=== PATIENT | male | born 2000 | race Asian ===

== ENCOUNTER 2021-02-16 20:41 | Emergency (ER) | payer OTHER ==
[~2021-02-16] VITALS: Ht 170.2 cm; Wt 66.8 kg
[2021-02-16] MEDS ORDERED: IBUPROFEN 600 MG TABLET PO ONE (21:15)
[2021-02-16 21:20] VITALS: BP 146/98
[2021-02-16 21:21] LABS: BASOPHILS % (AUTO) 0.5 % (0.0-2.0); EOSINOPHILS % (AUTO) 2.3 % (1.0-6.0); HEMATOCRIT 40.7 % (41-53); HEMOGLOBIN 13.4 g/dL (13.5-17.5); LYMPHOCYTES # (AUTO) 2.8 K/uL (1.0-4.8); LYMPHOCYTES % (AUTO) 24.4 % (22.0-44.0); MEAN CORPUSCULAR HEMOGLOBIN 30.6 pg (26.0-34.0); MEAN CORPUSCULAR VOLUME 93 fL (80-100); MONOCYTES # (AUTO) 0.9 K/uL (0.1-1.0); MONOCYTES % (AUTO) 8.1 % (2.0-9.0); NEUTROPHILS # (AUTO) 7.4 K/uL (1.8-7.7); NEUTROPHILS % (AUTO) 64.7 % (40.0-70.0); PLATELET COUNT (AUTO) 323 K/uL (150-450); RED BLOOD CELL COUNT(AUTO) 4.39 MIL/uL (4.50-5.90); RED CELL DISTRIBUTION WIDTH 14.5 % (11.5-14.5)
[2021-02-16 21:29] LABS: ANION GAP 12 mmol/L (8-16); CALCIUM, TOTAL 8.2 mg/dL (8.8-10.5); CARBON DIOXIDE 26 mmol/L (22-29); CHLORIDE 105 mmol/L (98-107); CREATININE 0.84 mg/dL (0.60-1.30); GLOMERULAR FILTR. RATE CALC > 60 mL/min (>60); GLUCOSE,RANDOM 118 mg/dL (70-110); POTASSIUM 3.5 mmol/L (3.5-5.1); SODIUM SERUM 143 mmol/L (136-145); UREA NITROGEN, BLOOD 12 mg/dL (7-18)
[2021-02-16 21:34] LABS: ALANINE AMINOTRANSFERASE 39 U/L (12-78); ALKALINE PHOSPHATASE 57 U/L (46-116); ASPARTATE AMINOTRANSFERASE 38 U/L (15-37); BILIRUBIN,TOTAL 0.5 mg/dL (0.1-1.0); TOTAL PROTEIN, SERUM 7.8 g/dL (6.4-8.2)
== END 2021-02-16 22:23 | disposition home or self-care (01) ==
LOC: EMS 20:42
DX: S40.012A Contusion of left shoulder, initial encounter (principal); F31.9 Bipolar disorder, unspecified; F17.200 Nicotine dependence, unspecified, uncomplicated; F12.90 Cannabis use, unspecified, uncomplicated; W19.XXXA Unspecified fall, initial encounter; Y93.89 Activity, other specified; Y92.89 Other specified places as the place of occurrence of the external cause; Y99.8 Other external cause status
CPT/HCPCS: 80053; 85025; 99285; G0480

== ENCOUNTER 2021-02-28 11:47 | Emergency (ER) | payer OTHER ==
[~2021-02-28] VITALS: Ht 157.5 cm; Wt 57.3 kg
[2021-02-28 12:36] VITALS: BP 132/90
[2021-02-28 13:23] LABS: COVID AG,FIA SOURCE NASOPHARYNGEAL
[2021-02-28 13:29] LABS: AMPHET/METH SCREEN,URINE NEGATIVE (NEGATIVE); BARBITURATE SCREEN, URINE NEGATIVE (NEGATIVE); BENZODIAZEPINES SCREEN,URINE NEGATIVE (NEGATIVE); CANNABINOID SCREEN,URINE POSITIVE (NEGATIVE); COCAINE SCREEN,URINE NEGATIVE (NEGATIVE); METHADONE SCREEN, URINE NEGATIVE (NEGATIVE); OPIATE SCREEN,URINE NEGATIVE (NEGATIVE)
[2021-02-28] MEDS ORDERED: IBUPROFEN 600 MG TABLET PO ONE (13:30)
[2021-02-28 13:33] LABS: PHENCYCLIDINE SCREEN,URINE NEGATIVE (NEGATIVE)
[2021-02-28 13:35] LABS: EOSINOPHILS % (AUTO) 2.9 % (1.0-6.0); HEMATOCRIT 44.1 % (41-53); HEMOGLOBIN 14.1 g/dL (13.5-17.5); LYMPHOCYTES # (AUTO) 3.1 K/uL (1.0-4.8); LYMPHOCYTES % (AUTO) 34.3 % (22.0-44.0); MEAN CORPUSCULAR HGB CONC 31.9 G/dL (31.0-37.0); MEAN CORPUSCULAR VOLUME 94 fL (80-100); MONOCYTES # (AUTO) 0.6 K/uL (0.1-1.0); MONOCYTES % (AUTO) 7.1 % (2.0-9.0); NEUTROPHILS # (AUTO) 4.9 K/uL (1.8-7.7); NEUTROPHILS % (AUTO) 54.7 % (40.0-70.0); PLATELET COUNT (AUTO) 283 K/uL (150-450); RED BLOOD CELL COUNT(AUTO) 4.69 MIL/uL (4.50-5.90); RED CELL DISTRIBUTION WIDTH 15.1 % (11.5-14.5)
[2021-02-28 13:49] LABS: ANION GAP 9 mmol/L (8-16); CALCIUM, TOTAL 9.2 mg/dL (8.8-10.5); CARBON DIOXIDE 29 mmol/L (22-29); CHLORIDE 106 mmol/L (98-107); CREATININE 0.84 mg/dL (0.60-1.30); GLOMERULAR FILTR. RATE CALC > 60 mL/min (>60); GLUCOSE,RANDOM 78 mg/dL (70-110); POTASSIUM 3.6 mmol/L (3.5-5.1); SODIUM SERUM 144 mmol/L (136-145); UREA NITROGEN, BLOOD 6 mg/dL (7-18)
[2021-02-28 13:51] LABS: ALANINE AMINOTRANSFERASE 33 U/L (12-78); ALBUMIN 4.2 g/dL (3.4-5.0); ALKALINE PHOSPHATASE 51 U/L (46-116); ASPARTATE AMINOTRANSFERASE 23 U/L (15-37); BILIRUBIN,TOTAL 0.3 mg/dL (0.1-1.0); TOTAL PROTEIN, SERUM 7.9 g/dL (6.4-8.2)
== END 2021-02-28 14:22 | disposition home or self-care (01) ==
LOC: EMS 11:47
DX: F31.9 Bipolar disorder, unspecified (principal); R45.851 Suicidal ideations; F17.200 Nicotine dependence, unspecified, uncomplicated; F12.90 Cannabis use, unspecified, uncomplicated; Z20.822 Contact with and (suspected) exposure to COVID-19; Z88.6 Allergy status to analgesic agent
CPT/HCPCS: 36415; 80053; 80307; 85025; 87426; 99285; G0480

== ENCOUNTER 2023-09-16 09:42 | Inpatient (IN) | payer MEDICAID, OTHER ==
[~2023-09-16] VITALS: Ht 152.4 cm; Wt 59.0 kg
[2023-09-16 10:12] LABS: PH,URINE DRUG SCREEN 6.5 (5.0-8.0)
[2023-09-16] MEDS ORDERED: PROP40TA7 PO (10:12)
[2023-09-16] MEDS ORDERED: DIAZ-328 PO (10:12)
[2023-09-16] MEDS ORDERED: CETI-450 PO (10:12)
[2023-09-16] MEDS ORDERED: QUET400T54 PO (10:12)
[2023-09-16] MEDS ORDERED: QUET200T PO (10:12)
[2023-09-16] MEDS ORDERED: NITR-75 PO (10:12)
[2023-09-16] MEDS ORDERED: NAPR-1025 PO (10:12)
[2023-09-16] MEDS ORDERED: ESCI-8 PO (10:12)
[2023-09-16 10:19] LABS: ALCOHOL, URINE DRUG SCREEN NEGATIVE (NEGATIVE); AMPHET/METH SCREEN,URINE NEGATIVE (NEGATIVE); BARBITURATE SCREEN, URINE NEGATIVE (NEGATIVE); BENZODIAZEPINES SCREEN,URINE POSITIVE (NEGATIVE); CANNABINOID SCREEN,URINE POSITIVE (NEGATIVE); COCAINE SCREEN,URINE NEGATIVE (NEGATIVE); METHADONE SCREEN, URINE NEGATIVE (NEGATIVE); OPIATE SCREEN,URINE NEGATIVE (NEGATIVE); PHENCYCLIDINE SCREEN,URINE NEGATIVE (NEGATIVE)
[2023-09-16 10:23] LABS: BASOPHILS % (AUTO) 0.7 % (0.0-2.0); EOSINOPHILS % (AUTO) 5.9 % (1.0-6.0); HEMATOCRIT 44.9 % (41-53); HEMOGLOBIN 15.1 g/dL (13.5-17.5); LYMPHOCYTES % (AUTO) 20.3 % (22.0-44.0); MEAN CORPUSCULAR HEMOGLOBIN 31.2 pg (26.0-34.0); MEAN CORPUSCULAR HGB CONC 33.6 G/dL (31.0-37.0); MEAN CORPUSCULAR VOLUME 93 fL (80-100); MONOCYTES # (AUTO) 0.7 K/uL (0.1-1.0); MONOCYTES % (AUTO) 7.2 % (2.0-9.0); NEUTROPHILS # (AUTO) 6.5 K/uL (1.8-7.7); NEUTROPHILS % (AUTO) 65.9 % (40.0-70.0); PLATELET COUNT (AUTO) 292 K/uL (150-450); RED BLOOD CELL COUNT(AUTO) 4.83 MIL/uL (4.50-5.90); WHITE BLOOD COUNT (AUTO) 9.9 K/uL (4.5-11.0)
[2023-09-16 10:33] LABS: ANION GAP 10 mmol/L (8-16); CALCIUM, TOTAL 9.2 mg/dL (8.8-10.5); CARBON DIOXIDE 26 mmol/L (22-29); CHLORIDE 104 mmol/L (98-107); CREATININE 0.97 mg/dL (0.60-1.30); GLOMERULAR FILTR. RATE CALC > 60 mL/min (>60); GLUCOSE,RANDOM 94 mg/dL (70-110); POTASSIUM 3.9 mmol/L (3.5-5.1); SODIUM SERUM 140 mmol/L (136-145); UREA NITROGEN, BLOOD 11 mg/dL (7-18)
[2023-09-16 10:37] LABS: ALCOHOL, BLOOD (SERUM) < 3 mg/dL (0-10)
[2023-09-16 10:39] LABS: ALANINE AMINOTRANSFERASE 31 U/L (12-78); ALBUMIN 4.4 g/dL (3.4-5.0); ALKALINE PHOSPHATASE 54 U/L (46-116); ASPARTATE AMINOTRANSFERASE 27 U/L (15-37); BILIRUBIN,TOTAL 0.5 mg/dL (0.1-1.0); TOTAL PROTEIN, SERUM 8.2 g/dL (6.4-8.2)
[2023-09-16 11:08] LABS: COVID AG,FIA SOURCE NASAL SWAB
[2023-09-16] MEDS: ESCITALOPRAM OXALATE 10 MG TABLET PO ONE (11:30)
[2023-09-16 11:46] LABS: SARS-COV2 (COVID) ANTIGEN,FIA Negative (Negative)
[2023-09-16] MEDS: LORazepam 2 MG TABLET PO PRN (12:47)
[2023-09-16] MEDS: HALOPERIDOL 5 MG TABLET PO PRN (12:47)
[2023-09-16 16:15] VITALS: BP 127/97; PULSE 83; RESP 17; TEMP 97.8; O2SAT 99
[2023-09-16 16:18] VITALS: BP 127/97; PULSE 83; RESP 17; TEMP 97.8; O2SAT 99
[2023-09-16] MEDS: PROPRANOLOL HCL 20 MG TABLET PO SCH (21:38)
[2023-09-16 21:45] VITALS: BP 134/73; PULSE 95; RESP 16; TEMP 97.1; O2SAT 99
[2023-09-16] MEDS: ZOLPIDEM TARTRATE 10 MG TABLET PO PRN (23:29)
[2023-09-16 23:45] VITALS: BP_SYST 127; BP_DIAS 64; BP_DIAS 94; PULSE 67; RESP 17; TEMP 97.3; TEMP 98.4; O2SAT 98
[2023-09-17] VITALS: BP 129/78; PULSE 67; RESP 17; TEMP 97.3; O2SAT 99
[2023-09-17 00:30] VITALS: BP 109/83; PULSE 69; RESP 18; TEMP 97.9; O2SAT 97
[2023-09-17 01:00] VITALS: BP 120/76; PULSE 68; RESP 17; TEMP 97.7; O2SAT 99
[2023-09-17 02:00] VITALS: BP 118/58; PULSE 67; RESP 17; TEMP 97.8; O2SAT 98
[2023-09-17] MEDS ORDERED: MAGNESIUM HYDROXIDE SUSPENSION 30 ML UDCUP PO PRN (07:00)
[2023-09-17] MEDS ORDERED: MAG HYDROX/ALUMINUM HYD/SIMETH ES 30 ML SUSPENSION UDCUP PO PRN (07:00)
[2023-09-17] MEDS ORDERED: GuaiFENesin/D-METHORPHAN [SUGAR-FREE] 200-20MG/10 ML SYRUP UDCUP PO PRN (07:00)
[2023-09-17] MEDS ORDERED: PETROLATUM,WHITE 28 GM JELLY TP PRN (07:00)
[2023-09-17] MEDS ORDERED: ONDANSETRON HCL 4 MG TABLET PO PRN (07:00)
[2023-09-17] MEDS ORDERED: DOCUSATE SODIUM 100 MG CAPSULE PO PRN (07:00)
[2023-09-17] MEDS ORDERED: LOPERAMIDE HCL 2 MG CAPSULE PO PRN (07:00)
[2023-09-17] MEDS ORDERED: NICOTINE 14 MG/24 HOUR PATCH TD PRN (07:00)
[2023-09-17] MEDS ORDERED: ALBUTEROL SULFATE HFA 90 MCG/PUFF 8 GM INHALER IH PRN (07:00)
[2023-09-17 08:00] VITALS: BP 132/82; PULSE 65; RESP 18; TEMP 98.6; O2SAT 100
[2023-09-17] MEDS: CETIRIZINE HCL 10 MG TABLET PO SCH (08:53)
[2023-09-17] MEDS: ACETAMINOPHEN 325 MG TABLET PO PRN (09:23)
[2023-09-17] MEDS ORDERED: ChlorproMAZINE HCL 50 MG/2 ML AMP ONE (13:03)
[2023-09-17] MEDS ORDERED: LORazepam 2 MG/ML VIAL ONE (13:04)
[2023-09-17] MEDS: LORazepam 2 MG/ML VIAL IM ONE (13:30)
[2023-09-17] MEDS: ChlorproMAZINE HCL 50 MG/2 ML AMP IM ONE (13:30)
[2023-09-17 20:09] VITALS: BP 137/80; PULSE 77; RESP 18; TEMP 98.4
[2023-09-18 08:02] VITALS: BP 132/76; PULSE 82; RESP 17; TEMP 98
[2023-09-18] MEDS: ESCITALOPRAM OXALATE 10 MG TABLET PO SCH (09:01)
[2023-09-18 10:47] LABS: APPEARANCE,URINE TURBID (CLEAR); BILIRUBIN,URINE NEGATIVE (NEGATIVE); COLOR,URINE LIGHT ORANGE (YELLOW); GLUCOSE, URINE (UA) NEGATIVE (NEGATIVE); KETONES,URINE TRACE mg/dL (NEGATIVE); LEUKOCYTE ESTERASE ,URINE NEGATIVE (NEGATIVE); NITRATE,URINE NEGATIVE (NEGATIVE); OCCULT BLOOD,URINE NEGATIVE (NEGATIVE); PROTEIN,URINE 30-70 mg/dL (NEGATIVE); SPECIFIC GRAVITIY, URINE 1.029 (1.003-1.030); UROBILINOGEN,URINE <=1.0 mg/dL (<=1.0)
[2023-09-18 11:11] LABS: ALCOHOL, URINE DRUG SCREEN NEGATIVE (NEGATIVE); AMPHET/METH SCREEN,URINE NEGATIVE (NEGATIVE); BARBITURATE SCREEN, URINE NEGATIVE (NEGATIVE); BENZODIAZEPINES SCREEN,URINE POSITIVE (NEGATIVE); CANNABINOID SCREEN,URINE POSITIVE (NEGATIVE); COCAINE SCREEN,URINE NEGATIVE (NEGATIVE); METHADONE SCREEN, URINE NEGATIVE (NEGATIVE); OPIATE SCREEN,URINE NEGATIVE (NEGATIVE); PHENCYCLIDINE SCREEN,URINE NEGATIVE (NEGATIVE)
[2023-09-18 12:17] LABS: HEMOGLOBIN A1C 5.7 % (3.8-5.6)
[2023-09-18 12:41] LABS: CHOL/HDL RATIO 5.7 (4.2-7.3); THYROID STIMULATING HORMONE 0.71 uIU/mL (0.36-3.74)
[2023-09-18] MEDS: ACETAMINOPHEN 325 MG TABLET PO PRN (18:20)
[2023-09-18] MEDS: QUEtiapine FUMARATE 300 MG TABLET PO SCH (20:05)
[2023-09-18 20:16] VITALS: BP 136/99; PULSE 77; RESP 18; TEMP 98; O2SAT 96
[2023-09-19 04:44] VITALS: BP 111/77; PULSE 88; RESP 18; TEMP 98; O2SAT 96
[2023-09-19 08:19] VITALS: BP 132/90; PULSE 100; RESP 18; TEMP 98; O2SAT 97
[2023-09-19] MEDS: QUEtiapine FUMARATE 100 MG TABLET PO PRN (09:50)
[2023-09-19] MEDS: IBUPROFEN 400 MG TABLET PO PRN (16:57)
[2023-09-19 20:40] VITALS: BP 132/83; PULSE 69; RESP 18; TEMP 98; O2SAT 96
[2023-09-20 02:34] VITALS: BP 142/94; PULSE 80; RESP 18; TEMP 97.7; O2SAT 100
[2023-09-20 08:37] VITALS: BP 133/85; PULSE 83; RESP 18; TEMP 97.9; O2SAT 95
[2023-09-20] MEDS ORDERED: ESCI-8 PO (12:40)
[2023-09-20] MEDS ORDERED: QUET300T19 PO (12:40)
[2023-09-20] MEDS ORDERED: PROP20TA96 PO (12:40)
[2023-09-20] MEDS ORDERED: CETI-450 PO (12:40)
== END 2023-09-20 17:45 | disposition home or self-care (01) | DRG 750 ==
LOC: EMS 09:45 → B3A 11:59
PROVIDERS: ADMIT Psychiatry & Neurology Psychiatry; ATTEND Psychiatry & Neurology Psychiatry
PROC: GZHZZZZ Group Psychotherapy (ICD-10-PCS; principal; 2023-09-17)
PROC: GZ51ZZZ Individual Psychotherapy, Behavioral (ICD-10-PCS; 2023-09-17)
DX: F25.0 Schizoaffective disorder, bipolar type (principal); F12.10 Cannabis abuse, uncomplicated; I10 Essential (primary) hypertension; Z20.822 Contact with and (suspected) exposure to COVID-19; S10.90XA Unspecified superficial injury of unspecified part of neck, initial encounter; Y93.89 Activity, other specified; X78.9XXA Intentional self-harm by unspecified sharp object, initial encounter; Y92.89 Other specified places as the place of occurrence of the external cause; Y99.8 Other external cause status; Z79.899 Other long term (current) drug therapy
CPT/HCPCS: 80053; 80061; 80307; 81003; 83036; 84443; 85025; 99285; G0480; J2060; J3230

== ENCOUNTER 2023-09-17 02:27 | Emergency (ER) | payer MEDICAID, OTHER ==
[~2023-09-17] VITALS: Ht 152.4 cm; Wt 59.1 kg
[~2023-09-17 02:27] MED LIST: CETI-450 PO; DIAZ-328 PO; ESCI-8 PO; NAPR-1025 PO; NITR-75 PO; PROP40TA7 PO; QUET200T PO; QUET400T54 PO
[2023-09-17 03:08] VITALS: TEMP 98.9
[2023-09-17] MEDS: KETOROLAC TROMETHAMINE 60 MG/2 ML VIAL IM ONE (03:48)
[2023-09-17] MEDS: METHOCARBAMOL 500 MG TABLET PO ONE (03:48)
[2023-09-17] MEDS: LIDOCAINE 5% TRANSDERMAL PATCH TD ONE (03:48)
[2023-09-17 05:15] VITALS: BP 127/70; PULSE 72; RESP 16
== END 2023-09-17 07:17 | disposition home or self-care (01) ==
LOC: EMS 02:27
DX: M54.31 Sciatica, right side (principal); F31.9 Bipolar disorder, unspecified; F12.90 Cannabis use, unspecified, uncomplicated; F10.90 Alcohol use, unspecified, uncomplicated; Z88.8 Allergy status to other drugs, medicaments and biological substances; Y90.9 Presence of alcohol in blood, level not specified
CPT/HCPCS: 99283; 96372; J1885

== ENCOUNTER 2023-09-24 16:59 | Inpatient (IN) | payer MEDICAID, OTHER ==
[~2023-09-24] VITALS: Ht 152.4 cm; Wt 60.8 kg
[~2023-09-24 16:59] MED LIST changes: -DIAZ-328 PO; -NAPR-1025 PO; -NITR-75 PO; +PROP20TA96 PO; -PROP40TA7 PO; -QUET200T PO; +QUET300T19 PO; -QUET400T54 PO
[2023-09-24] MEDS: LORazepam 2 MG/ML VIAL IM ONE (19:46)
[2023-09-24] MEDS: ZIPRASIDONE MESYLATE 20 MG/VIAL IM ONE (19:46)
[2023-09-24 22:13] LABS: COVID AG,FIA SOURCE NASAL SWAB
[2023-09-24 22:21] LABS: SARS-COV2 (COVID) ANTIGEN,FIA Negative (Negative)
[2023-09-24 23:08] LABS: BASOPHILS % (AUTO) 1.1 % (0.0-2.0); EOSINOPHILS % (AUTO) 6.8 % (1.0-6.0); HEMATOCRIT 40.3 % (41-53); HEMOGLOBIN 13.4 g/dL (13.5-17.5); LYMPHOCYTES # (AUTO) 3.3 K/uL (1.0-4.8); LYMPHOCYTES % (AUTO) 34.5 % (22.0-44.0); MEAN CORPUSCULAR HEMOGLOBIN 31.3 pg (26.0-34.0); MEAN CORPUSCULAR HGB CONC 33.2 G/dL (31.0-37.0); MEAN CORPUSCULAR VOLUME 94 fL (80-100); MONOCYTES # (AUTO) 0.8 K/uL (0.1-1.0); MONOCYTES % (AUTO) 7.9 % (2.0-9.0); NEUTROPHILS # (AUTO) 4.8 K/uL (1.8-7.7); NEUTROPHILS % (AUTO) 49.7 % (40.0-70.0); PLATELET COUNT (AUTO) 319 K/uL (150-450); RED BLOOD CELL COUNT(AUTO) 4.28 MIL/uL (4.50-5.90); RED CELL DISTRIBUTION WIDTH 15.3 % (11.5-14.5); WHITE BLOOD COUNT (AUTO) 9.7 K/uL (4.5-11.0)
[2023-09-24 23:15] LABS: CARBON DIOXIDE 26 mmol/L (22-29); CHLORIDE 103 mmol/L (98-107); POTASSIUM 3.5 mmol/L (3.5-5.1); SODIUM SERUM 142 mmol/L (136-145)
[2023-09-24 23:16] LABS: ANION GAP 13 mmol/L (8-16); CALCIUM, TOTAL 9.1 mg/dL (8.8-10.5); CREATININE 0.83 mg/dL (0.60-1.30); GLOMERULAR FILTR. RATE CALC > 60 mL/min (>60); GLUCOSE,RANDOM 82 mg/dL (70-110); UREA NITROGEN, BLOOD 13 mg/dL (7-18)
[2023-09-24 23:22] LABS: ALANINE AMINOTRANSFERASE 45 U/L (12-78); ALBUMIN 3.9 g/dL (3.4-5.0); ALKALINE PHOSPHATASE 57 U/L (46-116); ASPARTATE AMINOTRANSFERASE 60 U/L (15-37); BILIRUBIN,TOTAL 0.4 mg/dL (0.1-1.0); TOTAL PROTEIN, SERUM 7.4 g/dL (6.4-8.2)
[2023-09-24 23:27] LABS: ALCOHOL, BLOOD (SERUM) < 3 mg/dL (0-10)
[2023-09-25] MEDS: LORazepam 2 MG TABLET PO PRN (04:04)
[2023-09-25] MEDS: QUEtiapine FUMARATE 100 MG TABLET PO PRN (04:04)
[2023-09-25 04:53] VITALS: BP 124/81; PULSE 90; RESP 18; TEMP 97.7; O2SAT 98
[2023-09-25] MEDS: BACITRACIN 28 GM OINTMENT TP SCH (08:31)
[2023-09-25] MEDS: NICOTINE 14 MG/24 HOUR PATCH TD SCH (08:34)
[2023-09-25 08:36] LABS: HEMOGLOBIN A1C 5.6 % (3.8-5.6)
[2023-09-25 09:01] LABS: CHOL/HDL RATIO 3.8 (4.2-7.3); FREE T4 (FREE THYROXINE) 0.79 ng/dL (0.76-1.46); THYROID STIMULATING HORMONE 1.69 uIU/mL (0.36-3.74)
[2023-09-25 09:19] VITALS: BP 118/84; PULSE 87; RESP 16; TEMP 98; O2SAT 100
[2023-09-25] MEDS: ESCITALOPRAM OXALATE 10 MG TABLET PO SCH (10:46)
[2023-09-25] MEDS ORDERED: LORazepam 2 MG/ML VIAL ONE (11:17)
[2023-09-25] MEDS ORDERED: ChlorproMAZINE HCL 50 MG/2 ML AMP ONE (11:18)
[2023-09-25] MEDS: ChlorproMAZINE HCL 50 MG/2 ML AMP IM ONE (11:57)
[2023-09-25] MEDS: LORazepam 2 MG/ML VIAL IM ONE (11:57)
[2023-09-25] MEDS ORDERED: MAGNESIUM HYDROXIDE SUSPENSION 30 ML UDCUP PO PRN (15:30)
[2023-09-25] MEDS ORDERED: NICOTINE 14 MG/24 HOUR PATCH TD PRN (15:30)
[2023-09-25] MEDS ORDERED: MAG HYDROX/ALUMINUM HYD/SIMETH ES 30 ML SUSPENSION UDCUP PO PRN (15:30)
[2023-09-25] MEDS ORDERED: ALBUTEROL SULFATE HFA 90 MCG/PUFF 8 GM INHALER IH PRN (15:30)
[2023-09-25] MEDS ORDERED: PETROLATUM,WHITE 28 GM JELLY TP PRN (15:30)
[2023-09-25] MEDS ORDERED: GuaiFENesin/D-METHORPHAN [SUGAR-FREE] 200-20MG/10 ML SYRUP UDCUP PO PRN (15:30)
[2023-09-25] MEDS ORDERED: LOPERAMIDE HCL 2 MG CAPSULE PO PRN (15:30)
[2023-09-25 20:16] VITALS: BP 158/95; PULSE 87; TEMP 96.8
[2023-09-25] MEDS: PROPRANOLOL HCL 20 MG TABLET PO SCH (20:26)
[2023-09-25] MEDS: QUEtiapine FUMARATE 300 MG TABLET PO SCH (20:26)
[2023-09-25 21:15] VITALS: BP 131/87; PULSE 89; RESP 20; TEMP 97.7; O2SAT 100
[2023-09-25] MEDS: PROPRANOLOL HCL 10 MG TABLET PO SCH (21:24)
[2023-09-25] MEDS: ONDANSETRON HCL 4 MG TABLET PO PRN (22:13)
[2023-09-25] MEDS: IBUPROFEN 400 MG TABLET PO PRN (22:40)
[2023-09-26] MEDS: ZOLPIDEM TARTRATE 10 MG TABLET PO PRN (01:35)
[2023-09-26 07:07] VITALS: RESP 18
[2023-09-26] MEDS: CETIRIZINE HCL 10 MG TABLET PO SCH (08:18)
[2023-09-26] MEDS: DOCUSATE SODIUM 100 MG CAPSULE PO PRN (08:18)
[2023-09-26 08:29] VITALS: BP 130/70; PULSE 90; RESP 18; TEMP 98; O2SAT 100
[2023-09-26 08:29] LABS: HEMOGLOBIN A1C 5.6 % (3.8-5.6)
[2023-09-26 08:37] LABS: CHOL/HDL RATIO 3.5 (4.2-7.3); FREE T4 (FREE THYROXINE) 0.83 ng/dL (0.76-1.46); THYROID STIMULATING HORMONE 1.53 uIU/mL (0.36-3.74)
[2023-09-26] MEDS: QUEtiapine FUMARATE 25 MG TABLET PO ONE (10:47)
[2023-09-26 15:16] VITALS: BP 123/89; PULSE 98; RESP 19; TEMP 97.5; O2SAT 100
[2023-09-26] MEDS: PROPRANOLOL HCL 20 MG TABLET PO SCH (21:40)
[2023-09-26 22:20] VITALS: BP 125/55; PULSE 96; RESP 18; TEMP 98.4; O2SAT 98
[2023-09-27] VITALS (10 sets, daily range): BP systolic 111–157; BP diastolic 79–96; PULSE 60–100; RESP 16–20; TEMP 97.3–98.4; O2SAT 96–99
[2023-09-27] MEDS: QUEtiapine FUMARATE 100 MG TABLET PO PRN (11:18)
[2023-09-28 08:38] VITALS: BP 134/90; PULSE 97; RESP 17; TEMP 97.4; O2SAT 99
[2023-09-28 21:50] VITALS: BP 138/90; PULSE 89; RESP 16; TEMP 98; O2SAT 96
[2023-09-29 09:38] VITALS: BP 135/80; PULSE 85; RESP 18; TEMP 97.9; O2SAT 96
[2023-09-29] MEDS: ACETAMINOPHEN 325 MG TABLET PO PRN (20:07)
[2023-09-29 20:25] VITALS: BP 141/96; PULSE 70; TEMP 97.5; O2SAT 98
[2023-09-30 01:29] VITALS: BP 132/94; PULSE 72; RESP 18; TEMP 97.6; O2SAT 98
[2023-09-30 08:32] VITALS: BP 140/75; PULSE 91; RESP 18; TEMP 97.6; O2SAT 100
[2023-09-30 20:24] VITALS: BP 15/99; PULSE 88; TEMP 98; O2SAT 100
[2023-10-01 08:19] VITALS: BP 127/94; PULSE 85; RESP 18; TEMP 97.7; O2SAT 99
[2023-10-01 08:23] LABS: APPEARANCE,URINE CLEAR (CLEAR); BILIRUBIN,URINE NEGATIVE (NEGATIVE); COLOR,URINE COLORLESS (YELLOW); GLUCOSE, URINE (UA) NEGATIVE (NEGATIVE); KETONES,URINE NEGATIVE (NEGATIVE); LEUKOCYTE ESTERASE ,URINE NEGATIVE (NEGATIVE); NITRATE,URINE NEGATIVE (NEGATIVE); OCCULT BLOOD,URINE NEGATIVE (NEGATIVE); PH,URINE 7.5 (5.0-8.0); PH,URINE DRUG SCREEN 7.5 (5.0-8.0); PROTEIN,URINE NEGATIVE (NEGATIVE); SPECIFIC GRAVITIY, URINE 1.005 (1.003-1.030); UROBILINOGEN,URINE <=1.0 mg/dL (<=1.0)
[2023-10-01 08:33] LABS: AMPHET/METH SCREEN,URINE NEGATIVE (NEGATIVE); BARBITURATE SCREEN, URINE NEGATIVE (NEGATIVE); BENZODIAZEPINES SCREEN,URINE NEGATIVE (NEGATIVE); CANNABINOID SCREEN,URINE POSITIVE (NEGATIVE); COCAINE SCREEN,URINE NEGATIVE (NEGATIVE); METHADONE SCREEN, URINE NEGATIVE (NEGATIVE); OPIATE SCREEN,URINE NEGATIVE (NEGATIVE); PHENCYCLIDINE SCREEN,URINE NEGATIVE (NEGATIVE)
[2023-10-01 08:34] LABS: ALCOHOL, URINE DRUG SCREEN NEGATIVE (NEGATIVE)
[2023-10-01 08:54] VITALS: BP 132/85; PULSE 112; RESP 18; TEMP 98.4; O2SAT 97
== END 2023-10-01 18:45 | disposition left against medical advice (07) | DRG 750 ==
LOC: EMS 17:06 → B3A 09-25 01:01
PROVIDERS: ADMIT Psychiatry & Neurology Child & Adolescent Psychiatry; ATTEND Psychiatry & Neurology Psychiatry
DX: F25.0 Schizoaffective disorder, bipolar type (principal); R45.851 Suicidal ideations; F41.9 Anxiety disorder, unspecified; I10 Essential (primary) hypertension; F12.10 Cannabis abuse, uncomplicated; Z20.822 Contact with and (suspected) exposure to COVID-19; F90.9 Attention-deficit hyperactivity disorder, unspecified type; J30.9 Allergic rhinitis, unspecified; Z53.21 Procedure and treatment not carried out due to patient leaving prior to being seen by health care provider; D64.9 Anemia, unspecified; Z88.8 Allergy status to other drugs, medicaments and biological substances; Z79.899 Other long term (current) drug therapy
CPT/HCPCS: 80053; 80061; 80307; 81003; 83036; 84439; 84443; 85025; 87081; 99285; G0480; J2060; J3230; J3486; Q0162

== ENCOUNTER 2023-09-26 15:50 | Emergency (ER) | payer MEDICAID, OTHER ==
[~2023-09-26] VITALS: Ht 162.6 cm; Wt 59.0 kg
[2023-09-26 16:06] VITALS: BP 134/86; PULSE 78; RESP 18; TEMP 97.9
[2023-09-26] MEDS: ACETAMINOPHEN 500 MG TABLET PO ONE (18:20)
[2023-09-26] MEDS: KETOROLAC TROMETHAMINE 30 MG/ML VIAL IM ONE (18:26)
== END 2023-09-26 20:33 | disposition short-term general hospital (02) ==
LOC: EMS 15:54
DX: G43.909 Migraine, unspecified, not intractable, without status migrainosus (principal); F31.9 Bipolar disorder, unspecified; F10.90 Alcohol use, unspecified, uncomplicated; F12.90 Cannabis use, unspecified, uncomplicated; Z88.8 Allergy status to other drugs, medicaments and biological substances
CPT/HCPCS: 99285; 70450; 96372; J1885

== ENCOUNTER 2023-10-03 02:12 | Inpatient (IN) | payer MEDICAID, OTHER ==
[~2023-10-03] VITALS: Ht 152.4 cm; Wt 62.2 kg
[2023-10-03] MEDS: LORazepam 2 MG TABLET PO ONE (04:04)
[2023-10-03 04:51] LABS: BASOPHILS % (AUTO) 0.8 % (0.0-2.0); EOSINOPHILS % (AUTO) 3.8 % (1.0-6.0); HEMATOCRIT 42.7 % (41-53); HEMOGLOBIN 14.2 g/dL (13.5-17.5); LYMPHOCYTES # (AUTO) 2.9 K/uL (1.0-4.8); LYMPHOCYTES % (AUTO) 27.1 % (22.0-44.0); MEAN CORPUSCULAR HEMOGLOBIN 31.7 pg (26.0-34.0); MEAN CORPUSCULAR HGB CONC 33.3 G/dL (31.0-37.0); MEAN CORPUSCULAR VOLUME 95 fL (80-100); MONOCYTES % (AUTO) 9.1 % (2.0-9.0); NEUTROPHILS # (AUTO) 6.3 K/uL (1.8-7.7); NEUTROPHILS % (AUTO) 59.2 % (40.0-70.0); PLATELET COUNT (AUTO) 357 K/uL (150-450); RED BLOOD CELL COUNT(AUTO) 4.49 MIL/uL (4.50-5.90); RED CELL DISTRIBUTION WIDTH 15.4 % (11.5-14.5); WHITE BLOOD COUNT (AUTO) 10.7 K/uL (4.5-11.0)
[2023-10-03 04:53] LABS: ANION GAP 11 mmol/L (8-16); CALCIUM, TOTAL 9.2 mg/dL (8.8-10.5); CARBON DIOXIDE 29 mmol/L (22-29); CHLORIDE 99 mmol/L (98-107); CREATININE 0.97 mg/dL (0.60-1.30); GLOMERULAR FILTR. RATE CALC > 60 mL/min (>60); GLUCOSE,RANDOM 142 mg/dL (70-110); POTASSIUM 3.8 mmol/L (3.5-5.1); SODIUM SERUM 139 mmol/L (136-145); UREA NITROGEN, BLOOD 11 mg/dL (7-18)
[2023-10-03 05:01] LABS: ALANINE AMINOTRANSFERASE 33 U/L (12-78); ALBUMIN 4.2 g/dL (3.4-5.0); ALKALINE PHOSPHATASE 56 U/L (46-116); ASPARTATE AMINOTRANSFERASE 28 U/L (15-37); BILIRUBIN,TOTAL 0.3 mg/dL (0.1-1.0); TOTAL PROTEIN, SERUM 7.6 g/dL (6.4-8.2)
[2023-10-03 05:08] LABS: APPEARANCE,URINE CLEAR (CLEAR); BILIRUBIN,URINE NEGATIVE (NEGATIVE); COLOR,URINE LIGHT YELLOW (YELLOW); GLUCOSE, URINE (UA) NEGATIVE (NEGATIVE); KETONES,URINE NEGATIVE (NEGATIVE); LEUKOCYTE ESTERASE ,URINE NEGATIVE (NEGATIVE); NITRATE,URINE NEGATIVE (NEGATIVE); OCCULT BLOOD,URINE NEGATIVE (NEGATIVE); PH,URINE 6.5 (5.0-8.0); PROTEIN,URINE TRACE mg/dL (NEGATIVE); SPECIFIC GRAVITIY, URINE 1.022 (1.003-1.030); UROBILINOGEN,URINE <=1.0 mg/dL (<=1.0)
[2023-10-03 05:12] LABS: ALCOHOL, URINE DRUG SCREEN NEGATIVE (NEGATIVE); AMPHET/METH SCREEN,URINE NEGATIVE (NEGATIVE); BARBITURATE SCREEN, URINE NEGATIVE (NEGATIVE); BENZODIAZEPINES SCREEN,URINE NEGATIVE (NEGATIVE); CANNABINOID SCREEN,URINE POSITIVE (NEGATIVE); COCAINE SCREEN,URINE NEGATIVE (NEGATIVE); METHADONE SCREEN, URINE NEGATIVE (NEGATIVE); OPIATE SCREEN,URINE NEGATIVE (NEGATIVE); PHENCYCLIDINE SCREEN,URINE NEGATIVE (NEGATIVE)
[2023-10-03 05:16] LABS: PH,URINE DRUG SCREEN 6.5 (5.0-8.0)
[2023-10-03 05:17] LABS: ALCOHOL, BLOOD (SERUM) < 3 mg/dL (0-10)
[2023-10-03 05:22] LABS: COVID AG,FIA SOURCE NASAL SWAB; SARS-COV2 (COVID) ANTIGEN,FIA Negative (Negative)
[2023-10-03] MEDS: HALOPERIDOL 5 MG TABLET PO PRN (06:44)
[2023-10-03] MEDS: LORazepam 2 MG TABLET PO PRN (08:09)
[2023-10-03] MEDS ORDERED: MAG HYDROX/ALUMINUM HYD/SIMETH ES 30 ML SUSPENSION UDCUP PO PRN (09:30)
[2023-10-03] MEDS ORDERED: ONDANSETRON HCL 4 MG TABLET PO PRN (09:30)
[2023-10-03] MEDS ORDERED: MAGNESIUM HYDROXIDE SUSPENSION 30 ML UDCUP PO PRN (09:30)
[2023-10-03] MEDS ORDERED: IBUPROFEN 400 MG TABLET PO PRN (09:30)
[2023-10-03] MEDS ORDERED: CloNIDine HCL 0.1 MG TABLET PO PRN (09:30)
[2023-10-03] MEDS ORDERED: ALBUTEROL SULFATE HFA 90 MCG/PUFF 8 GM INHALER IH PRN (09:30)
[2023-10-03] MEDS ORDERED: GuaiFENesin/D-METHORPHAN [SUGAR-FREE] 200-20MG/10 ML SYRUP UDCUP PO PRN (09:30)
[2023-10-03] MEDS ORDERED: LOPERAMIDE HCL 2 MG CAPSULE PO PRN (09:30)
[2023-10-03 09:36] VITALS: BP 150/84; PULSE 99; RESP 18; TEMP 97.7
[2023-10-03] MEDS ORDERED: QUEtiapine FUMARATE 100 MG TABLET PO PRN (11:15)
[2023-10-03] MEDS: NICOTINE 14 MG/24 HOUR PATCH TD PRN (15:55)
[2023-10-03] MEDS: PETROLATUM,WHITE 28 GM JELLY TP PRN (19:07)
[2023-10-03] MEDS: QUEtiapine FUMARATE 300 MG TABLET PO SCH (20:01)
[2023-10-03 20:10] VITALS: BP 133/80; PULSE 100; RESP 18; TEMP 97.8; O2SAT 96
[2023-10-03] MEDS: ZOLPIDEM TARTRATE 10 MG TABLET PO PRN (20:37)
[2023-10-03] MEDS: DOCUSATE SODIUM 100 MG CAPSULE PO PRN (20:37)
[2023-10-04] MEDS: ACETAMINOPHEN 325 MG TABLET PO PRN (03:25)
[2023-10-04 03:31] VITALS: RESP 20
[2023-10-04] MEDS: ESCITALOPRAM OXALATE 10 MG TABLET PO SCH (08:02)
[2023-10-04 08:21] LABS: BACTERIA,URINE None Seen /HPF (None Seen); CALCIUM OXALATE CRYSTALS,UR Few /LPF (None Seen); RBC,URINE None Seen /HPF (0-2); SQUAMOUS EPITHELIAL CELL,UR None Seen /LPF (None Seen); WBC,URINE None Seen /HPF (0-5)
[2023-10-04 08:39] LABS: HEMOGLOBIN A1C 5.6 % (3.8-5.6)
[2023-10-04 08:40] VITALS: BP 134/86; PULSE 115; RESP 18; TEMP 97.5; O2SAT 99
[2023-10-04 08:44] LABS: CHOL/HDL RATIO 3.9 (4.2-7.3)
[2023-10-04 20:11] VITALS: BP 133/77; PULSE 97; TEMP 97.8; O2SAT 99
[2023-10-05] MEDS: QUEtiapine FUMARATE 100 MG TABLET PO PRN (00:24)
[2023-10-05 08:06] LABS: HEPATITIS C AB (EIA) Non Reactive (Non Reactive)
[2023-10-05 08:20] VITALS: BP 147/93; PULSE 100; RESP 17; TEMP 97.7; O2SAT 98
[2023-10-05 20:10] VITALS: BP 128/78; PULSE 99; TEMP 97.9; O2SAT 97
[2023-10-06 08:10] VITALS: BP 134/82; PULSE 89; RESP 17; TEMP 98; O2SAT 98
[2023-10-06 08:30] VITALS: BP 134/82; PULSE 100; RESP 18; TEMP 97.3; O2SAT 97
[2023-10-06] MEDS ORDERED: ESCI-8 PO (10:49)
[2023-10-06] MEDS ORDERED: QUET300T19 PO (10:49)
== END 2023-10-06 14:04 | disposition home or self-care (01) | DRG 750 ==
LOC: EMS 02:14 → B3A 07:05
PROVIDERS: ADMIT Psychiatry & Neurology Child & Adolescent Psychiatry; ATTEND Psychiatry & Neurology Psychiatry
PROC: GZHZZZZ Group Psychotherapy (ICD-10-PCS; principal; 2023-10-03)
PROC: GZ52ZZZ Individual Psychotherapy, Cognitive (ICD-10-PCS; 2023-10-03)
DX: F25.0 Schizoaffective disorder, bipolar type (principal); R45.851 Suicidal ideations; Z91.148 Patient's other noncompliance with medication regimen for other reason; F12.10 Cannabis abuse, uncomplicated; E78.5 Hyperlipidemia, unspecified; Z20.822 Contact with and (suspected) exposure to COVID-19; R73.9 Hyperglycemia, unspecified; F10.10 Alcohol abuse, uncomplicated; Y90.9 Presence of alcohol in blood, level not specified; F90.9 Attention-deficit hyperactivity disorder, unspecified type; Z79.899 Other long term (current) drug therapy; Z88.8 Allergy status to other drugs, medicaments and biological substances
CPT/HCPCS: 80053; 80061; 80307; 81001; 81003; 83036; 85025; 86803; 87081; 87340; 87491; 87591; G0480

== ENCOUNTER 2023-11-07 10:51 | Inpatient (IN) | payer MEDICAID, OTHER ==
[~2023-11-07] VITALS: Ht 152.4 cm; Wt 59.5 kg
[~2023-11-07 10:51] MED LIST changes: -CETI-450 PO; -PROP20TA96 PO
[2023-11-07 11:52] LABS: COVID AG,FIA SOURCE NASAL SWAB
[2023-11-07 11:59] LABS: PH,URINE DRUG SCREEN 5.5 (5.0-8.0)
[2023-11-07 12:07] LABS: BASOPHILS % (AUTO) 0.7 % (0.0-2.0); EOSINOPHILS % (AUTO) 2.3 % (1.0-6.0); HEMOGLOBIN 14.8 g/dL (13.5-17.5); LYMPHOCYTES # (AUTO) 2.1 K/uL (1.0-4.8); LYMPHOCYTES % (AUTO) 23.5 % (22.0-44.0); MEAN CORPUSCULAR HEMOGLOBIN 31.5 pg (26.0-34.0); MEAN CORPUSCULAR HGB CONC 33.7 G/dL (31.0-37.0); MEAN CORPUSCULAR VOLUME 94 fL (80-100); MONOCYTES # (AUTO) 0.5 K/uL (0.1-1.0); MONOCYTES % (AUTO) 5.8 % (2.0-9.0); NEUTROPHILS % (AUTO) 67.7 % (40.0-70.0); PLATELET COUNT (AUTO) 414 K/uL (150-450); RED CELL DISTRIBUTION WIDTH 14.6 % (11.5-14.5); WHITE BLOOD COUNT (AUTO) 8.8 K/uL (4.5-11.0)
[2023-11-07 12:07] LABS: ALCOHOL, URINE DRUG SCREEN NEGATIVE (NEGATIVE); AMPHET/METH SCREEN,URINE NEGATIVE (NEGATIVE); BARBITURATE SCREEN, URINE NEGATIVE (NEGATIVE); BENZODIAZEPINES SCREEN,URINE NEGATIVE (NEGATIVE); CANNABINOID SCREEN,URINE POSITIVE (NEGATIVE); COCAINE SCREEN,URINE NEGATIVE (NEGATIVE); METHADONE SCREEN, URINE NEGATIVE (NEGATIVE); OPIATE SCREEN,URINE NEGATIVE (NEGATIVE); PHENCYCLIDINE SCREEN,URINE NEGATIVE (NEGATIVE)
[2023-11-07 12:23] LABS: ALCOHOL, BLOOD (SERUM) < 3 mg/dL (0-10)
[2023-11-07 12:24] LABS: ANION GAP 9 mmol/L (8-16); CARBON DIOXIDE 27 mmol/L (22-29); CHLORIDE 103 mmol/L (98-107); CREATININE 0.75 mg/dL (0.60-1.30); GLOMERULAR FILTR. RATE CALC > 60 mL/min (>60); GLUCOSE,RANDOM 135 mg/dL (70-110); POTASSIUM 4.1 mmol/L (3.5-5.1); SODIUM SERUM 139 mmol/L (136-145); UREA NITROGEN, BLOOD 17 mg/dL (7-18)
[2023-11-07 12:29] LABS: ALANINE AMINOTRANSFERASE 42 U/L (12-78); ALBUMIN 3.8 g/dL (3.4-5.0); ALKALINE PHOSPHATASE 67 U/L (46-116); ASPARTATE AMINOTRANSFERASE 19 U/L (15-37); BILIRUBIN,TOTAL 0.2 mg/dL (0.1-1.0); TOTAL PROTEIN, SERUM 7.6 g/dL (6.4-8.2)
[2023-11-07 12:29] LABS: SARS-COV2 (COVID) ANTIGEN,FIA Negative (Negative)
[2023-11-07] MEDS: LORazepam 2 MG TABLET PO PRN (16:36)
[2023-11-07] MEDS: HALOPERIDOL 5 MG TABLET PO PRN (16:36)
[2023-11-08] MEDS: ZOLPIDEM TARTRATE 10 MG TABLET PO PRN (00:53)
[2023-11-09] MEDS: NICOTINE 14 MG/24 HOUR PATCH TD SCH (08:11)
[2023-11-09] MEDS ORDERED: MAGNESIUM HYDROXIDE SUSPENSION 30 ML UDCUP PO PRN (10:00)
[2023-11-09] MEDS ORDERED: NICOTINE 14 MG/24 HOUR PATCH TD PRN (10:00)
[2023-11-09] MEDS ORDERED: ALBUTEROL SULFATE HFA 90 MCG/PUFF 8 GM INHALER IH PRN (10:00)
[2023-11-09] MEDS ORDERED: LOPERAMIDE HCL 2 MG CAPSULE PO PRN (10:00)
[2023-11-09] MEDS ORDERED: GuaiFENesin/D-METHORPHAN [SUGAR-FREE] 200-20MG/10 ML SYRUP UDCUP PO PRN (10:00)
[2023-11-09] MEDS ORDERED: PETROLATUM,WHITE 28 GM JELLY TP PRN (10:00)
[2023-11-09] MEDS ORDERED: CloNIDine HCL 0.1 MG TABLET PO PRN (10:00)
[2023-11-09] MEDS ORDERED: MAG HYDROX/ALUMINUM HYD/SIMETH ES 30 ML SUSPENSION UDCUP PO PRN (10:00)
[2023-11-09] MEDS ORDERED: DOCUSATE SODIUM 100 MG CAPSULE PO PRN (10:00)
[2023-11-09] MEDS: ESCITALOPRAM OXALATE 10 MG TABLET PO SCH (10:12)
[2023-11-09] MEDS: ONDANSETRON HCL 4 MG TABLET PO PRN (17:07)
[2023-11-09 20:06] VITALS: BP 148/93; PULSE 93; RESP 18; TEMP 97.9
[2023-11-09] MEDS: QUEtiapine FUMARATE 300 MG TABLET PO SCH (20:18)
[2023-11-09 21:50] VITALS: BP 138/87; PULSE 87; RESP 18; TEMP 97
[2023-11-09 21:53] VITALS: BP 142/87; PULSE 87; RESP 18; TEMP 98
[2023-11-09] MEDS: IBUPROFEN 400 MG TABLET PO PRN (21:53)
[2023-11-09 22:53] VITALS: RESP 18
[2023-11-10 07:40] VITALS: BP 137/79; PULSE 72; RESP 18; TEMP 97.9
[2023-11-10] MEDS: ACETAMINOPHEN 325 MG TABLET PO PRN (07:42)
[2023-11-10 09:18] LABS: HEMOGLOBIN A1C 5.7 % (3.8-5.6)
[2023-11-10 09:45] LABS: APPEARANCE,URINE CLEAR (CLEAR); BILIRUBIN,URINE NEGATIVE (NEGATIVE); COLOR,URINE LIGHT YELLOW (YELLOW); GLUCOSE, URINE (UA) NEGATIVE (NEGATIVE); KETONES,URINE NEGATIVE (NEGATIVE); LEUKOCYTE ESTERASE ,URINE NEGATIVE (NEGATIVE); NITRATE,URINE NEGATIVE (NEGATIVE); OCCULT BLOOD,URINE NEGATIVE (NEGATIVE); PROTEIN,URINE TRACE mg/dL (NEGATIVE); SPECIFIC GRAVITIY, URINE 1.019 (1.003-1.030); UROBILINOGEN,URINE <=1.0 mg/dL (<=1.0)
[2023-11-10 09:51] LABS: ALCOHOL, URINE DRUG SCREEN NEGATIVE (NEGATIVE); AMPHET/METH SCREEN,URINE NEGATIVE (NEGATIVE); BARBITURATE SCREEN, URINE NEGATIVE (NEGATIVE); BENZODIAZEPINES SCREEN,URINE NEGATIVE (NEGATIVE); CANNABINOID SCREEN,URINE POSITIVE (NEGATIVE); COCAINE SCREEN,URINE NEGATIVE (NEGATIVE); METHADONE SCREEN, URINE NEGATIVE (NEGATIVE); OPIATE SCREEN,URINE NEGATIVE (NEGATIVE); PHENCYCLIDINE SCREEN,URINE NEGATIVE (NEGATIVE)
[2023-11-10 09:55] LABS: CHOL/HDL RATIO 3.7 (4.2-7.3); THYROID STIMULATING HORMONE 1.64 uIU/mL (0.36-3.74)
[2023-11-10 20:57] VITALS: BP 104/70; PULSE 74; RESP 19; TEMP 98
[2023-11-10] MEDS ORDERED: LORazepam 2 MG/ML VIAL ONE (23:56)
[2023-11-10] MEDS ORDERED: DiphenhydrAMINE HCL 50 MG/ML VIAL ONE (23:57)
[2023-11-11] MEDS: LORazepam 2 MG/ML VIAL IM ONE (00:26)
[2023-11-11] MEDS: HALOPERIDOL LACTATE 5 MG/ML VIAL IM ONE ×2 (00:27→18:54)
[2023-11-11 09:13] VITALS: BP 134/77; PULSE 93; RESP 18; TEMP 96.6
[2023-11-11 10:13] VITALS: BP 138/82; PULSE 84; RESP 18; TEMP 97.8
[2023-11-11 18:00] VITALS: BP 138/79; PULSE 100; RESP 18; TEMP 98.2
[2023-11-11] MEDS ORDERED: HALOPERIDOL LACTATE 5 MG/ML VIAL ONE (18:43)
[2023-11-11 19:00] VITALS: BP 136/87; PULSE 97; RESP 19; TEMP 98.6
[2023-11-11 21:37] VITALS: BP 127/83; PULSE 99; RESP 18; TEMP 97.5
[2023-11-12 04:27] VITALS: BP 122/78; PULSE 85; RESP 18; TEMP 98
[2023-11-12 05:30] VITALS: RESP 18
[2023-11-12 11:04] VITALS: BP 132/81; PULSE 83; RESP 20; TEMP 96.8
[2023-11-12] MEDS: HydrOXYzine PAMOATE 50 MG CAPSULE PO PRN (16:37)
[2023-11-12 22:14] VITALS: BP 122/79; PULSE 97; RESP 18; TEMP 97.7
[2023-11-13 09:46] VITALS: BP 132/81; PULSE 93; RESP 18; TEMP 97
[2023-11-13 10:46] VITALS: BP 132/78; PULSE 113; RESP 18; TEMP 97.6
[2023-11-13 21:06] VITALS: BP 129/77; PULSE 84; RESP 18; TEMP 97.9
[2023-11-14 02:25] VITALS: BP 120/80; PULSE 80; RESP 17; TEMP 98
[2023-11-14 08:20] VITALS: BP_SYST 121; BP_SYST 150; BP_DIAS 84; BP_DIAS 91; PULSE 103; RESP 18; TEMP 98.3
[2023-11-14 13:22] VITALS: BP 115/88; PULSE 78; RESP 18
[2023-11-14 14:19] VITALS: RESP 16
[2023-11-14 21:15] VITALS: BP 137/74; PULSE 91; RESP 19; TEMP 97.6
[2023-11-14 22:20] VITALS: RESP 18
[2023-11-15 11:24] VITALS: BP 135/87; PULSE 116; RESP 18; TEMP 97.5
== END 2023-11-15 11:42 | disposition home or self-care (01) | DRG 750 ==
LOC: EMS 10:51 → UNDOADMIN 11-08 15:22 → 3EC 11-08 15:22
PROVIDERS: ADMIT Psychiatry & Neurology Psychiatry; ATTEND Psychiatry & Neurology Psychiatry
PROC: GZHZZZZ Group Psychotherapy (ICD-10-PCS; principal; 2023-11-09)
PROC: GZ52ZZZ Individual Psychotherapy, Cognitive (ICD-10-PCS; 2023-11-09)
PROC: GZ56ZZZ Individual Psychotherapy, Supportive (ICD-10-PCS; 2023-11-09)
DX: F25.0 Schizoaffective disorder, bipolar type (principal); F10.90 Alcohol use, unspecified, uncomplicated; F12.10 Cannabis abuse, uncomplicated; G47.00 Insomnia, unspecified; M54.2 Cervicalgia; Z79.899 Other long term (current) drug therapy; Z20.822 Contact with and (suspected) exposure to COVID-19; F90.9 Attention-deficit hyperactivity disorder, unspecified type
CPT/HCPCS: 72125; 80053; 80061; 80307; 81003; 83036; 84443; 85025; 87081; 99285; G0480; J1200; J1630; J2060; Q0162

== ENCOUNTER 2023-12-24 22:28 | Emergency (ER) | payer MEDICAID, OTHER ==
[~2023-12-24] VITALS: Ht 152.4 cm; Wt 59.1 kg
[2023-12-24 23:11] VITALS: BP 139/111; PULSE 105; RESP 20; TEMP 98.2
[2023-12-24 23:31] LABS: COVID AG,FIA SOURCE NASAL SWAB
[2023-12-24 23:35] LABS: BASOPHILS % (AUTO) 0.8 % (0.0-2.0); EOSINOPHILS % (AUTO) 3.5 % (1.0-6.0); HEMATOCRIT 40.9 % (41-53); HEMOGLOBIN 13.6 g/dL (13.5-17.5); LYMPHOCYTES # (AUTO) 2.7 K/uL (1.0-4.8); LYMPHOCYTES % (AUTO) 34.2 % (22.0-44.0); MEAN CORPUSCULAR HEMOGLOBIN 30.3 pg (26.0-34.0); MEAN CORPUSCULAR HGB CONC 33.3 G/dL (31.0-37.0); MEAN CORPUSCULAR VOLUME 91 fL (80-100); MONOCYTES % (AUTO) 12.8 % (2.0-9.0); NEUTROPHILS # (AUTO) 3.8 K/uL (1.8-7.7); NEUTROPHILS % (AUTO) 48.7 % (40.0-70.0); PLATELET COUNT (AUTO) 325 K/uL (150-450); RED BLOOD CELL COUNT(AUTO) 4.49 MIL/uL (4.50-5.90); RED CELL DISTRIBUTION WIDTH 14.1 % (11.5-14.5); WHITE BLOOD COUNT (AUTO) 7.9 K/uL (4.5-11.0)
[2023-12-24 23:44] LABS: ANION GAP 7 mmol/L (8-16); CARBON DIOXIDE 29 mmol/L (22-29); CHLORIDE 102 mmol/L (98-107); CREATININE 0.84 mg/dL (0.60-1.30); GLOMERULAR FILTR. RATE CALC > 60 mL/min (>60); GLUCOSE,RANDOM 103 mg/dL (70-110); POTASSIUM 3.8 mmol/L (3.5-5.1); SODIUM SERUM 138 mmol/L (136-145); UREA NITROGEN, BLOOD 13 mg/dL (7-18)
[2023-12-24 23:53] LABS: SARS-COV2 (COVID) ANTIGEN,FIA Negative (Negative)
[2023-12-25 00:13] LABS: ALCOHOL, BLOOD (SERUM) < 3 mg/dL (0-10)
[2023-12-25] MEDS ORDERED: BENZTROPINE MESYLATE 2 MG TABLET PO ONE (05:15)
[2023-12-25] MEDS ORDERED: HALOPERIDOL 5 MG TABLET PO ONE (05:15)
[2023-12-25] MEDS ORDERED: LORazepam 1 MG TABLET PO ONE (05:15)
== END 2023-12-25 01:17 | disposition home or self-care (01) ==
LOC: EMS 22:28
DX: F25.0 Schizoaffective disorder, bipolar type (principal); F15.10 Other stimulant abuse, uncomplicated; F17.210 Nicotine dependence, cigarettes, uncomplicated; Z88.4 Allergy status to anesthetic agent; Z88.8 Allergy status to other drugs, medicaments and biological substances; Z59.00 Homelessness unspecified; Z79.899 Other long term (current) drug therapy; Z20.822 Contact with and (suspected) exposure to COVID-19
CPT/HCPCS: 99283; 87426; 80048; 85025; 36415; G0480

== ENCOUNTER 2023-12-25 04:56 | Emergency (ER) | payer OTHER ==
[~2023-12-25] VITALS: Ht 152.4 cm; Wt 59.0 kg
[2023-12-25 04:58] VITALS: BP 142/95; PULSE 69; RESP 16; TEMP 98
[2023-12-25] MEDS: HALOPERIDOL 5 MG TABLET PO ONE (05:42)
[2023-12-25] MEDS: DiphenhydrAMINE HCL 25 MG CAPSULE PO ONE (05:42)
== END 2023-12-25 06:09 | disposition home or self-care (01) ==
LOC: EMS 04:57
DX: F25.0 Schizoaffective disorder, bipolar type (principal); F17.210 Nicotine dependence, cigarettes, uncomplicated; F15.90 Other stimulant use, unspecified, uncomplicated; Z59.00 Homelessness unspecified
CPT/HCPCS: 99283